=== PATIENT | male | born 1970 | race Caucasian/White ===

== ENCOUNTER 2017-03-03 19:24 | Inpatient (IN) | payer OTHER ==
[~2017-03-03] VITALS: Ht 180.3 cm; Wt 76.3 kg
[2017-03-03] MEDS ORDERED: MOME13HF INH (19:51)
[2017-03-03] MEDS ORDERED: ALBU1.25 NEB (19:52)
[2017-03-03] MEDS ORDERED: RANI150T8 PO (19:53)
[2017-03-03] MEDS ORDERED: ACETAMINOPHEN 325 MG TABLET PO ONE (20:00)
[2017-03-03] MEDS ORDERED: SODIUM CHLORIDE 0.9% 1,000ML IVBOLUS ONE ×2 (20:00→20:30)
[2017-03-03] MEDS ORDERED: SODIUM CHLORIDE FLUSH 10ML SYR IVF ONE (20:00)
[2017-03-03] MEDS ORDERED: methylPREDNISolone SOD SUCC 125 MG/2 ML ONE (20:11)
[2017-03-03 20:12] LABS: HEMATOCRIT 39.6 % (39.2-51.8); HEMOGLOBIN 13.4 g/dL (13.7-18.0); WHITE BLOOD COUNT 15.7 x10^3/uL (3.4-10)
[2017-03-03] MEDS ORDERED: ACETAMINOPHEN 500 MG TABLET ONE (20:12)
[2017-03-03 20:17] LABS: ASPARTATE AMINO TRANSFERASE 12 U/L (15-37); BLOOD UREA NITROGEN 15 mg/dL (7-18)
[2017-03-03 20:20] LABS: IS PT STATUS REG ER OR PRE ER? YES
[2017-03-03] MEDS ORDERED: ALBUTEROL/IPRATROPIUM 2.5MG/0.5MG, 3 ML ONE (20:27)
[2017-03-03] MEDS ORDERED: ACETAMINOPHEN 500 MG TABLET PO ONE (20:30)
[2017-03-03] MEDS ORDERED: methylPREDNISolone SOD SUCC 125 MG/2 ML IVP ONE (20:30)
[2017-03-03] MEDS ORDERED: ALBUTEROL/IPRATROPIUM 2.5MG/0.5MG, 3 ML NPPB ONE (20:30)
[2017-03-03] MEDS ORDERED: LEVOFLOXACIN/PMX 750MG/150ML 150 ML ONE (21:28)
[2017-03-03] MEDS ORDERED: LEVOFLOXACIN/PMX 750MG/150ML 150 ML IV ONE (21:30)
[2017-03-03] MEDS ORDERED: ENOXAPARIN 40 MG/0.4 ML SQ SCH (22:00)
[2017-03-03] MEDS ORDERED: SODIUM CHLORIDE FLUSH 10ML SYR IVF PRN (22:00)
[2017-03-03] MEDS ORDERED: ALBUTEROL/IPRATROPIUM 2.5MG/0.5MG, 3 ML NPPB PRN (22:30)
[2017-03-03] MEDS ORDERED: ALBUTEROL SULFATE 2.5 MG/3 ML NEB PRN (22:30)
[2017-03-03] MEDS: SODIUM CHLORIDE 0.9% 1,000 ML IV SCH (22:58)
[2017-03-03] MEDS: methylPREDNISolone SOD SUCC 40 MG/ML IVPush SCH (22:58)
[2017-03-03 23:09] VITALS: BP 97/57
[2017-03-04 03:40] VITALS: BP 93/55
[2017-03-04] MEDS: methylPREDNISolone SOD SUCC 40 MG/ML IVPush SCH ×3 (05:08→18:30)
[2017-03-04 05:14] LABS: HEMATOCRIT 36.2 % (39.2-51.8); HEMOGLOBIN 12.1 g/dL (13.7-18.0)
[2017-03-04 05:27] LABS: BLOOD UREA NITROGEN 14 mg/dL (7-18)
[2017-03-04 07:19] VITALS: BP 107/66
[2017-03-04] MEDS: ALBUTEROL/IPRATROPIUM 2.5MG/0.5MG, 3 ML NPPB SCH ×3 (07:40→15:35)
[2017-03-04] MEDS ORDERED: FLUTICASONE/VILANTEROL 200-25MCG/INH INH SCH (09:00)
[2017-03-04] MEDS: SODIUM CHLORIDE 0.9% 1,000 ML IV SCH ×2 (09:29→15:00)
[2017-03-04] MEDS ORDERED: DULERA INH SCH (10:00)
[2017-03-04] MEDS ORDERED: LEVO750T6 PO (11:23)
[2017-03-04] MEDS ORDERED: POTASSIUM PHOSPHATE 44 MEQ in SODIUM CHLORIDE 0.9% 500 ML IV ONE (11:30)
[2017-03-04 13:39] VITALS: BP 120/70
[2017-03-04] MEDS ORDERED: LEVOFLOXACIN/PMX 750MG/150ML 150 ML IV SCH (21:30)
== END 2017-03-04 20:10 | disposition home or self-care (01) | DRG 193 ==
LOC: ED 22:09 → EDIP 22:10 → 4EST 22:25 → UNDODISIN 03-04 17:52
PROVIDERS: ADMIT Internal Medicine; ATTEND Internal Medicine
DX: J15.9 Unspecified bacterial pneumonia (principal); J96.20 Acute and chronic respiratory failure, unspecified whether with hypoxia or hypercapnia; Z99.81 Dependence on supplemental oxygen; E87.1 Hypo-osmolality and hyponatremia; K21.9 Gastro-esophageal reflux disease without esophagitis; G24.9 Dystonia, unspecified; Z85.820 Personal history of malignant melanoma of skin
CPT/HCPCS: 36415; 71010; 80048; 80053; 83605; 83735; 84100; 84145; 84484; 85025; 87040; 87070; 87077; 87186; 87205; 93005; 94640; 96361; 96374; J1650; J1956; J7620; J2920; J2930; J7030; J7040

== ENCOUNTER 2017-06-07 09:41 | Observation (INO) | payer OTHER ==
[~2017-06-07] VITALS: Ht 180.3 cm; Wt 79.5 kg
[~2017-06-07 09:41] MED LIST: ALBU1.25 NEB; LEVO750T6 PO; LIDOCAINE 2%, 20ML ONE; LIDOCAINE 4% TOPICAL SOLUTION 50 ML ONE; MOME13HF INH; RANI150T8 PO
[2017-06-07] MEDS ORDERED: MIDAZOLAM 1 MG/ML, 5ML ONE ×2 (10:16→13:08)
[2017-06-07] MEDS ORDERED: FENTANYL PF 100 MCG/2ML ONE ×2 (10:16→13:07)
[2017-06-07 11:32] VITALS: BP 109/68
[2017-06-07] MEDS ORDERED: SODIUM CHLORIDE 0.9% 1,000 ML IV SCH (12:00)
[2017-06-07] MEDS ORDERED: LIDOCAINE 4% TOPICAL SOLUTION 50 ML NAS PRN (12:00)
[2017-06-07] MEDS ORDERED: MIDAZOLAM 1 MG/ML, 2ML IV PRN (12:00)
[2017-06-07] MEDS ORDERED: LIDOCAINE 1%, 2ML IM ONE (12:00)
[2017-06-07] MEDS ORDERED: FENTANYL PF 100 MCG/2ML IV ONE (12:00)
[2017-06-07 21:19] LABS: BRONCHOSCOPY RECEIVED; BRONCHOSCOPY QUESTIONNAIRE RECEIVED
== END 2017-06-07 13:57 | disposition home or self-care (01) ==
LOC: OR 09:41 → 4NOR 09:44 → OR 09:55
PROVIDERS: ADMIT Internal Medicine Critical Care Medicine; ATTEND Internal Medicine Critical Care Medicine
DX: J15.1 Pneumonia due to Pseudomonas (principal); J96.20 Acute and chronic respiratory failure, unspecified whether with hypoxia or hypercapnia; J47.9 Bronchiectasis, uncomplicated; E87.1 Hypo-osmolality and hyponatremia; G24.9 Dystonia, unspecified; D72.829 Elevated white blood cell count, unspecified; R00.0 Tachycardia, unspecified; R51 Headache; K21.9 Gastro-esophageal reflux disease without esophagitis; Z98.890 Other specified postprocedural states
CPT/HCPCS: 31624; 31625; 71010; 87015; 87070; 87077; 87102; 87116; 87186; 87205; 87206; 88108; 88112; 88305; 88312; 94640; 99152; 99153; G0378; J2250; J3010; J3490

== ENCOUNTER → 2019-05-11 | Outpatient (CLI) | payer OTHER ==
[~2019-05-11] MED LIST changes: -LIDOCAINE 2%, 20ML ONE; -LIDOCAINE 4% TOPICAL SOLUTION 50 ML ONE; +RANI-467 PO; -RANI150T8 PO
== END | disposition home or self-care (01) ==
LOC: CFH 09:01
PROVIDERS: ATTEND Internal Medicine Critical Care Medicine
DX: J96.10 Chronic respiratory failure, unspecified whether with hypoxia or hypercapnia (principal); J47.9 Bronchiectasis, uncomplicated; J98.4 Other disorders of lung; Z88.1 Allergy status to other antibiotic agents
CPT/HCPCS: 71250